=== PATIENT | female | born 1955 | race Caucasian/White ===

== ENCOUNTER 2019-04-08 16:25 | Emergency (ER) | payer OTHER ==
[~2019-04-08] VITALS: Ht 170.2 cm; Wt 51.0 kg
[~2019-04-08 16:25] MED LIST: ASPI-496; ESTR-22; ESTR8.1S2; HYDR200T72; MELO15TA24; MOME13HF2; MOME17SP; SUCR1TAB33
[2019-04-08 16:28] VITALS: BP 131/81
== END 2019-04-08 17:55 | disposition home or self-care (01) ==
LOC: ED 17:49
DX: L03.115 Cellulitis of right lower limb (principal); M79.661 Pain in right lower leg
CPT/HCPCS: 99284

== ENCOUNTER → 2020-05-23 | Outpatient (CLI) | payer OTHER | END | disposition home or self-care (01) | LOC: RAD 13:11 | PROVIDERS: ATTEND Family Medicine | DX: M26.69 Other specified disorders of temporomandibular joint (principal); M99.13 Subluxation complex (vertebral) of lumbar region | CPT/HCPCS: 70336 ==

== ENCOUNTER → 2020-11-14 | Outpatient (CLI) | payer OTHER | END | disposition home or self-care (01) | LOC: CFH 10:52 | PROVIDERS: ATTEND Registered Nurse | DX: Z12.2 Encounter for screening for malignant neoplasm of respiratory organs (principal); R91.1 Solitary pulmonary nodule; Z87.891 Personal history of nicotine dependence | CPT/HCPCS: 71271 ==

== ENCOUNTER → 2021-02-27 | Outpatient (CLI) | payer OTHER | END | disposition home or self-care (01) | LOC: CFH 13:50 | PROVIDERS: ATTEND Registered Nurse | DX: J43.9 Emphysema, unspecified (principal); J98.4 Other disorders of lung; R91.1 Solitary pulmonary nodule | CPT/HCPCS: 71250 ==